=== PATIENT | female | born 1960 | race Caucasian/White ===

== ENCOUNTER 2020-08-22 14:32 | Outpatient (CLI) | payer MEDICARE | END 2020-08-22 14:33 | disposition home or self-care (01) | LOC: BICMAMMO 14:32 | DX: R92.2 Inconclusive mammogram (principal) | CPT/HCPCS: 77065; G0279 ==

== ENCOUNTER 2021-09-22 08:55 | Outpatient (CLI) | payer MEDICARE | END 2021-09-22 08:56 | disposition home or self-care (01) | LOC: BICULT 08:55 | PROVIDERS: ATTEND Internal Medicine Gastroenterology | DX: K59.09 Other constipation (principal); R10.13 Epigastric pain; R19.5 Other fecal abnormalities; K76.0 Fatty (change of) liver, not elsewhere classified; R16.0 Hepatomegaly, not elsewhere classified; K83.8 Other specified diseases of biliary tract | CPT/HCPCS: 36415; 76705; 80053; 80061 ==